=== PATIENT | male | born 1995 | race Caucasian/White ===

== ENCOUNTER 2017-10-28 12:30 | Outpatient (RCR) | payer OTHER, SELFPAY ==
--- NOTE | 2017-10-18 13:34 | PTTR_ITS ---
DATE: 10/18/17 SUBJECTIVE: Donaldo was released via his surgeon to resume P.T. He has undergone two additional grafting surgeries with use of wound vac, 1 on August 22 and the 2nd on September 15 to improve scar mobility S/p electrical del toro to his trunk. He reports he is under no restrictions. Is having minimal to no pain. Is sleeping better. Continues to note restrictions overhead, however feels this has significantly improved with the surgeries and continued laser treatment for scar mobility. He follows up at [facility] virtually on . He continues to have laser treatments for scar mobility. These will be set up via his virtual appointment . OBJECTIVE: Wounds are fully healed. There is no drainage. No dressings are in place at this time. He is utilizing the Aveeno (broad spectrum protect and hydrate) as needed and for sun protection. Upon reassessment, his active right shoulder is to 145 , abduction 170 , internal rotation to T6 and external rotation 75 . PROM, in supine, flexion 160 , abduction 175 , internal rotation 85 at 90 of abduction and external rotation 90 at 90 of abduction. Presents with improved thoracolumbar side bending to the left with significantly less drawing from the skin adhesions and del toro. He has improved scar mobility upon palpation with significantly less sensitivity. Manual therapy: ([id number]). Promotion of soft tissue stretching, soft tissue mobs throughout the abdomen, pec stretching, overhead end range glenohumeral jt mobility. Direct treatment time: 30 min. Total treatment time: 30 min. Plan: Resume 3x per week P.T. with focus on strength, stabilization and overhead mobility in preparation for a return to work. He will have continued consultation via [facility] for further laser treatment for continued improvement in scar mobility. We will incorporate a global strengthening program with cardiovascular activities per M.D. order with mobilization as needed. Donaldo is in agreement with this POC. KW/gc
--- NOTE | 2017-10-24 13:30 | PTTR_ITS ---
DATE: October 24, 2017 SUBJECTIVE: Donaldo overall is doing well.He offers no complaints at todays session. OBJECTIVE: Manual therapy: ([id number]).STM throughout the entire anterior and posterior chest and back. CFM to the paraspinals TPR to the upper and mid trap, lev scap. Scar tissue mobilization also completed. This followed with P/AAROM to the right shoulder throughout all planes. Good end range mobility noted throughout all planes. Only minor limitations into flexion. Significant improvement since his last 2 surgeries. Therapeutic procedures ([id number]). * X See flow sheet: Incorporated global UE/LE strength and conditioning per flow sheet. Core stabilization promoting circuit training. Tolerated without complaints. Again significant improvements in his ROM and minimal compensatory movements noted. * X Provided skilled instruction in proper exercise performance with cues to facilitate proper muscle recruitment and/or movement pattern: Will continue with STM within tolerance. Advance stabilization for promotion of return to work status. Direct treatment time: 45 minutes Total treatment time: 45 minutes
--- NOTE | 2017-10-26 12:30 | PTTR_ITS ---
DATE: October 26, 2017 SUBJECTIVE: Donaldo noted some mild leg soreness following last treatment session. He overall otherwise offers no new complaints. OBJECTIVE: Manual therapy: ([id number]).P/AAROM throughout the right shoulder all planes. Good end range mobility noted. STM throughout the anterior and posterior chest/ back. Skin rolling. Strumming of the paraspinals. TPR to the mid and lower trap and lev scap. Scar tissue mobilization also provided. Therapeutic procedures ([id number]). * X See flow sheet: Global UE/LE strength and stabilization along with core stabilization. * X Provided skilled instruction in proper exercise performance: promoting proper body mechanics and avoidance of compensatory movement patterns. 30 minutes of Wellness portion of the program followed. Direct treatment time: 30 minutes Total treatment time: 60 minutes
--- NOTE | 2017-10-28 12:30 | PTTR_ITS ---
DATE: October 28, 2017 SUBJECTIVE: Donaldo notes that he did not sleep well last night. He is very tired this afternoon secondary to this. He reports no soreness from last treatment session. OBJECTIVE: Manual therapy: ([id number]).STM throughout the entire anterior chest and abdomen as well as throughout the entire posterior back right sided performed in left side lying position. Skin rolling and TPR techniques provided. Scar tissue mobilization also completed. Therapeutic procedures ([id number]). * X See flow sheet: Incorporated core stabilization and global UE/LE resistance training. Circuit fashion. * X Provided skilled instruction in proper exercise performance: monitoring body mechanics and postural awareness * 30 minutes of Wellness portion of the program followed. Direct treatment time: 30 minutes Total treatment time: 60 minutes
== END 2017-10-28 23:59 | disposition home or self-care (01) ==
LOC: PT 12:30
PROVIDERS: PCP Family Medicine; Referring Provider Physical Medicine & Rehabilitation; Visit Provider Physical Medicine & Rehabilitation
DX: T21.30XD Burn of third degree of trunk, unspecified site, subsequent encounter (principal); T31.30 Burns involving 30-39% of body surface with 0% to 9% third degree burns; V00-Y99 External causes of morbidity
CPT/HCPCS: 97110; 97140

== ENCOUNTER 2021-10-21 02:22 | Outpatient (CLI) | payer OTHER, SELFPAY ==
[2021-10-21 08:04] LABS: Calculated LDL 95 mg/dL (<100); Cholesterol 163 mg/dL (<200); Glucose 84 mg/dL (74-106); HDL Cholesterol 53 mg/dL (40-60); Triglyceride 79 mg/dL (<150)
== END 2021-10-21 02:23 | disposition home or self-care (01) ==
LOC: LBO 02:22
PROVIDERS: PCP Family Medicine; Visit Provider Family Medicine
DX: E78.5 Hyperlipidemia, unspecified (principal); R73.9 Hyperglycemia, unspecified
CPT/HCPCS: 36415; 80061; 82947